=== PATIENT | female | born 1945 | race Caucasian/White ===

== ENCOUNTER 2019-09-06 15:56 | Inpatient (IN) ==
[2019-09-06 16:37] LABS: Hematocrit 31.7 % (35.3-44.9); Hemoglobin 9.8 g/dL (11.5-15.4); Mean Corpuscular HGB Conc 30.9 g/dL (31.6-35.5); Mean Corpuscular Hemoglobin 25.7 pg (28.0-33.3); Red Blood Count 3.82 M/mcL (3.82-4.97); Red Cell Distribution Width 18.4 % (11.5-14.5); White Blood Count 20.8 K/mcL (4.3-11.1)
[2019-09-06 16:38] LABS: Platelet Count 91 K/mcL (140-400)
[2019-09-06 16:59] LABS: Alanine Aminotransferase 28 Units/L (7-52); Albumin 3.1 g/dL (3.5-5.7); Albumin/Globulin Ratio 0.9 (1.1-2.2); Alkaline Phosphatase 110 Units/L (34-104); Aspartate Amino Transferase 33 Units/L (13-39); BUN/Creatinine Ratio 18 (6-26); Bilirubin,Direct 1.1 mg/dL (0.0-0.2); Bilirubin,Total 3.1 mg/dL (0.3-1.0); Blood Urea Nitrogen 19 mg/dL (8-23); Calcium 9.2 mg/dL (8.6-10.3); Carbon Dioxide 20 mEq/L (23-29); Chloride 103 mEq/L (98-107); Globulin 3.3 g/dL (2.4-3.5); Glucose 131 mg/dL (70-105); Lipase 9 Units/L (11-82); Osmolality,Calculated 276 (280-300); Potassium 3.7 mEq/L (3.5-5.1); Sodium 131 mEq/L (136-145); Total Protein 6.4 g/dL (6.4-8.9); eGFR For African Americans > 60 (> 60); eGFR For Non-African Americans 53 (> 60)
[2019-09-06 17:46] LABS: Bilirubin,Urine Negative (Negative); Blood,Urine Negative (Negative); Clarity,Urine Cloudy (Clear); Color,Urine Yellow (Yellow); Glucose,Urine (UA) Normal (Normal); Ketones,Urine Negative (Negative); Leukocyte Esterase,Urine Small (Negative); Nitrite,Urine Negative (Negative); Protein,Urine Negative (Neg-Trace); Specific Gravity,Urine 1.013 (1.010-1.025); Urobilinogen,Urine Normal (Normal)
[2019-09-06 17:48] LABS: Bacteria,Urine None Seen per hpf (None-Few); Hyaline Casts,Urine Few per lpf (None-Few); RBC,Urine 0-3 per hpf (0-3); Squamous Epithelial Cell,Urine Many per lpf (None-Few)
[2019-09-06 18:01] LABS: Yeast,Urine Few per hpf (None Seen)
[2019-09-06] MEDS ORDERED: Piperacillin/Tazobactam 3.375 GM in 0.9 % Sodium Chloride Mini Bag 100 ML IVPB ONE (18:15)
[2019-09-06] MEDS ORDERED: Ringers Solution, Lactated 1,000 ML IVC ONE (20:03)
[2019-09-06] MEDS ORDERED: traMADol 50 MG TABLET PO ONE (21:48)
[2019-09-06] MEDS ORDERED: Ketorolac 30 MG/ML VIAL IVP ONE (21:49)
[2019-09-06] MEDS: Pantoprazole 40 MG VIAL IVP SCH (22:25)
[2019-09-06] MEDS: Gabapentin 300 MG CAPSULE PO SCH (22:25)
[2019-09-07] MEDS: Piperacillin/Tazobactam 3.375 GM in 0.9 % Sodium Chloride Mini Bag 100 ML IVPB SCH ×4 (00:31→23:47)
[2019-09-07] MEDS ORDERED: *HR* Heparin 5,000 UNIT/ML VIAL SQ SCH (06:00)
[2019-09-07 07:05] LABS: Basophils % 0.1 %; Eosinophils # 0.1 K/mcL (0.0-0.6); Eosinophils % 0.5 %; Hematocrit 25.5 % (35.3-44.9); Hemoglobin 7.8 g/dL (11.5-15.4); Immature Granulocytes % 0.7 % (0-4); Immature Platelets 7.2 % (1.1-6.1); Lymphocytes # 0.7 K/mcL (0.6-4.6); Lymphocytes % 6.5 %; Mean Corpuscular HGB Conc 30.6 g/dL (31.6-35.5); Mean Corpuscular Hemoglobin 25.3 pg (28.0-33.3); Mean Corpuscular Volume 82.8 fL (83.0-100.0); Mean Platelet Volume 11.4 fL (9.4-12.4); Red Blood Count 3.08 M/mcL (3.82-4.97); Red Cell Distribution Width 18.6 % (11.5-14.5); Segmented Neutrophils % 81.2 %; White Blood Count 10.4 K/mcL (4.3-11.1)
[2019-09-07 07:08] LABS: INR 1.5
[2019-09-07 07:18] LABS: Albumin 2.6 g/dL (3.5-5.7); Albumin/Globulin Ratio 0.9 (1.1-2.2); Bilirubin,Direct 1.2 mg/dL (0.0-0.2); Bilirubin,Indirect 1.4 mg/dL (0.0-1.0); Bilirubin,Total 2.6 mg/dL (0.3-1.0); Globulin 2.8 g/dL (2.4-3.5); Total Protein 5.4 g/dL (6.4-8.9)
[2019-09-07 07:19] LABS: Calcium 8.9 mg/dL (8.6-10.3); Magnesium 1.9 mg/dL (1.6-2.6)
[2019-09-07 07:21] LABS: % Iron Saturation 10 % (15-50); Iron 36 mcg/dL (50-170); Transferrin 253 mg/dL (203-362)
[2019-09-07 07:33] LABS: Monocytes # 1.1 K/mcL (0.0-1.3); Neutrophils # 8.4 K/mcL (1.6-8.9); Platelet Count 59 K/mcL (140-400)
[2019-09-07 07:35] LABS: Anisocytosis 1+ (Not Present); Platelet Estimate Decreased (Normal)
[2019-09-07 07:36] LABS: Hypochromasia Present (Not Present)
[2019-09-07 07:38] LABS: Ferritin 41 ng/mL (10-120)
[2019-09-07 07:47] LABS: Folate > 22.3 ng/mL (3.0-16.0); Vitamin B12 > 1500 pg/mL (250-1100)
[2019-09-07] MEDS: Pantoprazole 40 MG VIAL IVP SCH ×2 (08:02→22:00)
[2019-09-07] MEDS: Cyanocobalamin (B-12) 1,000 MCG TABLET PO SCH (08:02)
[2019-09-07] MEDS: Multivit/Ca/Min/Fe/FA 1 TAB TABLET PO SCH (08:03)
[2019-09-07] MEDS: Loratadine 10 MG TABLET PO SCH (08:03)
[2019-09-07] MEDS ORDERED: Furosemide 40 MG TABLET PO SCH (09:00)
[2019-09-07 10:21] LABS: RBC,Peritoneal Fluid 0.017 M/mcL
[2019-09-07 10:23] LABS: Appearance of Peritoneal Fl CLOUDY (Clear)
[2019-09-07 10:43] LABS: Basophils,Peritoneal Fluid 0 %; Eosinophils,Peritoneal Fluid 0 %
[2019-09-07] MEDS: Albumin 25% 25gram/100mL 25 GM/100 ML IV.SOLN IVC SCH ×4 (12:47→20:11)
[2019-09-07 14:30] LABS: Hepatitis B Surface Antigen Nonreactive (Nonreactive)
[2019-09-07 14:59] LABS: Hepatitis C Virus Antibody Nonreactive (Nonreactive)
[2019-09-07 15:00] LABS: Hepatitis A Antibody IgM Nonreactive (Nonreactive); Hepatitis B Core IgM Nonreactive (Nonreactive)
[2019-09-07] MEDS: Lactulose Oral Soln 20 GM/30 ML UDC PO SCH ×2 (17:58→22:00)
[2019-09-07] MEDS: Ondansetron 4 MG/2 ML VIAL IVP PRN (21:10)
[2019-09-07] MEDS: Gabapentin 300 MG CAPSULE PO SCH (22:00)
[2019-09-07] MEDS ORDERED: *HR* Promethazine 25 MG/ML VIAL IVP ONE (23:39)
[2019-09-08 04:51] LABS: Hemoglobin 6.7 g/dL (11.5-15.4)
[2019-09-08 04:53] LABS: Hematocrit 21.6 % (35.3-44.9); Immature Platelets 7.8 % (1.1-6.1); Mean Corpuscular Volume 83.7 fL (83.0-100.0); Mean Platelet Volume 11.9 fL (9.4-12.4); Red Blood Count 2.58 M/mcL (3.82-4.97); Red Cell Distribution Width 18.5 % (11.5-14.5); White Blood Count 4.7 K/mcL (4.3-11.1)
[2019-09-08 05:10] LABS: Albumin 3.7 g/dL (3.5-5.7); Albumin/Globulin Ratio 1.7 (1.1-2.2); Bilirubin,Total 3.1 mg/dL (0.3-1.0); Calcium 9.5 mg/dL (8.6-10.3); Globulin 2.2 g/dL (2.4-3.5); Potassium 3.6 mEq/L (3.5-5.1); Total Protein 5.9 g/dL (6.4-8.9)
[2019-09-08] MEDS: Cyanocobalamin (B-12) 1,000 MCG TABLET PO SCH (08:44)
[2019-09-08] MEDS: Loratadine 10 MG TABLET PO SCH (08:44)
[2019-09-08] MEDS: Multivit/Ca/Min/Fe/FA 1 TAB TABLET PO SCH (08:44)
[2019-09-08] MEDS: Lactulose Oral Soln 20 GM/30 ML UDC PO SCH (08:44)
[2019-09-08] MEDS: Piperacillin/Tazobactam 3.375 GM in 0.9 % Sodium Chloride Mini Bag 100 ML IVPB SCH ×2 (08:45→17:09)
[2019-09-08] MEDS: Pantoprazole 40 MG VIAL IVP SCH ×2 (08:45→21:02)
[2019-09-08] MEDS: Ondansetron 4 MG/2 ML VIAL IVP PRN ×3 (08:57→22:55)
[2019-09-08] MEDS ORDERED: 0.9 % Sodium Chloride 250 ML ONE (10:07)
[2019-09-08] MEDS: Gabapentin 300 MG CAPSULE PO SCH (21:11)
[2019-09-08 21:41] LABS: Hemoglobin 9.1 g/dL (11.5-15.4)
[2019-09-08] MEDS: 0.9 % Sodium Chloride 1,000 ML IVC SCH (22:56)
[2019-09-09 00:55] LABS: Basophils % 0.1 %; Eosinophils % 0.1 %; Red Cell Distribution Width 18.6 % (11.5-14.5)
[2019-09-09 00:57] LABS: Hematocrit 28.7 % (35.3-44.9); Hemoglobin 8.5 g/dL (11.5-15.4); Immature Granulocytes % 0.9 % (0-4); Immature Platelets 5.4 % (1.1-6.1); Lymphocytes # 0.5 K/mcL (0.6-4.6); Lymphocytes % 5.8 %; Mean Corpuscular HGB Conc 29.6 g/dL (31.6-35.5); Mean Corpuscular Hemoglobin 26.1 pg (28.0-33.3); Mean Platelet Volume 11.3 fL (9.4-12.4); Monocytes # 0.7 K/mcL (0.0-1.3); Monocytes % 8.1 %; Red Blood Count 3.26 M/mcL (3.82-4.97)
[2019-09-09 00:59] LABS: Hematocrit 27.3 % (35.3-44.9); Hemoglobin 8.9 g/dL (11.5-15.4)
[2019-09-09 01:00] LABS: Neutrophils # 7.7 K/mcL (1.6-8.9); Platelet Count 47 K/mcL (140-400)
[2019-09-09] MEDS: Piperacillin/Tazobactam 3.375 GM in 0.9 % Sodium Chloride Mini Bag 100 ML IVPB SCH ×3 (01:11→18:02)
[2019-09-09 01:18] LABS: Albumin 3.4 g/dL (3.5-5.7); Albumin/Globulin Ratio 1.4 (1.1-2.2); Calcium 9.4 mg/dL (8.6-10.3); Globulin 2.4 g/dL (2.4-3.5); Potassium 3.9 mEq/L (3.5-5.1); Total Protein 5.8 g/dL (6.4-8.9)
[2019-09-09 04:57] LABS: Hematocrit 27.1 % (35.3-44.9); Hemoglobin 8.5 g/dL (11.5-15.4)
[2019-09-09] MEDS: Multivit/Ca/Min/Fe/FA 1 TAB TABLET PO SCH (07:34)
[2019-09-09] MEDS: Cyanocobalamin (B-12) 1,000 MCG TABLET PO SCH (07:34)
[2019-09-09] MEDS: Loratadine 10 MG TABLET PO SCH (07:34)
[2019-09-09] MEDS: Albumin 25% 25gram/100mL 25 GM/100 ML IV.SOLN IVC SCH ×2 (07:38→12:27)
[2019-09-09] MEDS: Pantoprazole 40 MG VIAL IVP SCH ×2 (09:41→21:16)
[2019-09-09 10:49] LABS: Hematocrit 27.6 % (35.3-44.9); Hemoglobin 8.5 g/dL (11.5-15.4)
[2019-09-09] MEDS ORDERED: Albumin 25% 25gram/100mL 25 GM/100 ML IV.SOLN IVPB ONE (12:20)
[2019-09-09] MEDS: 0.9 % Sodium Chloride 1,000 ML IVC SCH (12:33)
[2019-09-09] MEDS: Gabapentin 300 MG CAPSULE PO SCH (21:10)
[2019-09-10] MEDS: Piperacillin/Tazobactam 3.375 GM in 0.9 % Sodium Chloride Mini Bag 100 ML IVPB SCH ×3 (00:24→16:41)
[2019-09-10] MEDS: 0.9 % Sodium Chloride 1,000 ML IVC SCH (03:03)
[2019-09-10 05:45] LABS: Eosinophils % 0.6 %
[2019-09-10 05:47] LABS: Basophils % 0.2 %; Hematocrit 25.1 % (35.3-44.9); Hemoglobin 7.7 g/dL (11.5-15.4); Immature Granulocytes % 1.8 % (0-4); Immature Platelets 4.9 % (1.1-6.1); Lymphocytes # 0.3 K/mcL (0.6-4.6); Lymphocytes % 5.5 %; Mean Corpuscular HGB Conc 30.7 g/dL (31.6-35.5); Mean Corpuscular Hemoglobin 26.1 pg (28.0-33.3); Mean Corpuscular Volume 85.1 fL (83.0-100.0); Mean Platelet Volume 11.1 fL (9.4-12.4); Monocytes # 0.6 K/mcL (0.0-1.3); Monocytes % 12.3 %; Red Blood Count 2.95 M/mcL (3.82-4.97); Red Cell Distribution Width 19.2 % (11.5-14.5); Segmented Neutrophils % 79.6 %; White Blood Count 5.1 K/mcL (4.3-11.1)
[2019-09-10 05:48] LABS: Neutrophils # 4.1 K/mcL (1.6-8.9); Platelet Count 39 K/mcL (140-400)
[2019-09-10 06:05] LABS: Alanine Aminotransferase 13 Units/L (7-52); Albumin 3.8 g/dL (3.5-5.7); Alkaline Phosphatase 60 Units/L (34-104); Aspartate Amino Transferase 19 Units/L (13-39); BUN/Creatinine Ratio 28 (6-26); Bilirubin,Total 4.7 mg/dL (0.3-1.0); Blood Urea Nitrogen 26 mg/dL (8-23); Calcium 9.7 mg/dL (8.6-10.3); Carbon Dioxide 22 mEq/L (23-29); Chloride 111 mEq/L (98-107); Globulin 1.9 g/dL (2.4-3.5); Glucose 123 mg/dL (70-105); Osmolality,Calculated 304 (280-300); Potassium 3.5 mEq/L (3.5-5.1); Sodium 144 mEq/L (136-145); Total Protein 5.7 g/dL (6.4-8.9); eGFR For African Americans > 60 (> 60); eGFR For Non-African Americans 59 (> 60)
[2019-09-10] MEDS: Loratadine 10 MG TABLET PO SCH (10:10)
[2019-09-10] MEDS: Multivit/Ca/Min/Fe/FA 1 TAB TABLET PO SCH (10:10)
[2019-09-10] MEDS: Cyanocobalamin (B-12) 1,000 MCG TABLET PO SCH (10:10)
[2019-09-10] MEDS: Pantoprazole 40 MG VIAL IVP SCH ×2 (10:17→21:23)
[2019-09-10] MEDS ORDERED: Ipratropium/Albuterol Neb 3 ML IH PRN (13:50)
[2019-09-10] MEDS: Ondansetron 4 MG/2 ML VIAL IVP PRN (13:53)
[2019-09-10] MEDS ORDERED: Furosemide 40 MG/4 ML VIAL IVP ONE ×2 (14:22→14:25)
[2019-09-10] MEDS ORDERED: *HR* Promethazine 25 MG/ML VIAL IVP ONE (16:57)
[2019-09-10 17:16] VITALS: BP 137/84
[2019-09-10] MEDS ORDERED: *HR* Promethazine 25 MG/ML VIAL ONE (17:44)
[2019-09-10] MEDS: Gabapentin 300 MG CAPSULE PO SCH (21:26)
== END 2019-09-10 23:20 | disposition critical access hospital (66) | DRG 247 ==
LOC: EMEROOARM 15:56 → 3ANU 15:56 → SUATTDRO 09-07 16:57
PROVIDERS: ADMIT Internal Medicine; ATTEND Internal Medicine